=== PATIENT | male | born 1970 | race Caucasian/White ===

== ENCOUNTER 2018-05-15 20:59 | Emergency (ER) | payer OTHER ==
[2018-05-15] MEDS: SOD CHLORIDE 0.9% 1,000 ML IV (21:33)
[2018-05-15] MEDS: ONDANSETRON 4 MG INJ IV (21:33)
[2018-05-15 21:51] LABS: ANION GAP 14 (8-16); BLOOD UREA NITROGEN 9 mg/dl (7-20); CALCIUM 8.5 mg/dl (8.4-10.2); CARBON DIOXIDE 26 mmol/L (21-31); CHLORIDE 92 mmol/L (97-110); CREATININE 0.71 mg/dl (0.61-1.24); GLUCOSE 97 mg/dl (70-220); POTASSIUM 3.1 mmol/L (3.5-5.1); SODIUM 129 mmol/L (135-144)
[2018-05-15] MEDS: POTASSIUM CHLORIDE (SR) 10 MEQ TAB PO (22:49)
== END 2018-05-15 23:20 | disposition home or self-care (01) ==
LOC: E/R 20:59
DX: E86.0 Dehydration (principal); E87.1 Hypo-osmolality and hyponatremia; E87.6 Hypokalemia; I10 Essential (primary) hypertension
CPT/HCPCS: 36415; 80048; 96374; 99284-25

== ENCOUNTER → 2018-05-22 16:49 | Emergency (ER) | payer OTHER ==
[2018-05-22] MEDS: ONDANSETRON (ODT) 4 MG TAB ODT (15:35)
[2018-05-22] MEDS: LORAZEPAM 0.5 MG TAB PO (15:35)
[2018-05-22] MEDS: SOD CHLORIDE 0.9% 1,000 ML IV (15:35)
[2018-05-22] MEDS: LIDOCAINE/MYLANTA 40 ML BTL PO (16:11)
== END | disposition home or self-care (01) ==
DX: R11.2 Nausea with vomiting, unspecified (principal); I10 Essential (primary) hypertension; F17.210 Nicotine dependence, cigarettes, uncomplicated
CPT/HCPCS: 96360; 99284-25

== ENCOUNTER 2018-05-28 18:20 | Emergency (ER) | payer OTHER ==
[2018-05-28] MEDS: PANTOPRAZOLE 40 MG INJ IV (20:43)
[2018-05-28] MEDS: ONDANSETRON 4 MG INJ IV (20:43)
[2018-05-28] MEDS: LORAZEPAM 2 MG INJ IV (20:43)
[2018-05-28] MEDS: SOD CHLORIDE 0.9% 1,000 ML IV (20:45)
[2018-05-28] MEDS: LIDOCAINE/MYLANTA 40 ML BTL PO (20:46)
[2018-05-28 20:48] LABS: ADD MAN DIFF? NO
[2018-05-28 20:55] LABS: URINE BLOOD (Dip) POC Negative (NEGATIVE); URINE GLUCOSE (Dip) POC Negative (NEGATIVE); URINE KETONES (Dip) POC Negative (NEGATIVE); URINE LEUKOCYTE EST (Dip) POC Negative (NEGATIVE); URINE NITRITE (Dip) POC Negative (NEGATIVE); URINE TOTAL PROTEIN POC Negative (NEGATIVE)
[2018-05-28 20:57] LABS: WHITE BLOOD COUNT 9.8 10^3/ul (4.8-10.8)
[2018-05-28 20:57] LABS: BASOPHILS % 0.2 % (0.0-2.0); EOSINOPHILS % 0.4 % (0.0-7.0); HEMATOCRIT 35.5 % (42.0-52.0); HEMOGLOBIN 12.8 g/dl (14.0-18.0); LYMPHOCYTES % 20.3 % (15.0-51.0); MEAN CORPUSCULAR HEMOGLOBIN 30.8 pg (29.0-33.0); MEAN CORPUSCULAR HGB CONC 36.1 g/dl (32.0-37.0); MEAN CORPUSCULAR VOLUME 85.3 fl (82.0-101.0); MEAN PLATELET VOLUME 8.4 fl (7.4-10.4); MONOCYTE # 0.7 10^3/ul (0.3-0.9); MONOCYTES % 7.2 % (0.0-11.0); NEUTROPHILS % 71.6 % (39.0-77.0); PLATELET COUNT 416 10^3/UL (140-415); RED BLOOD COUNT 4.16 10^6/ul (4.70-6.10); RED CELL DISTRIBUTION WIDTH 13.3 % (11.5-14.5)
[2018-05-28 21:21] LABS: ALANINE AMINOTRANSFERASE 26 IU/L (13-69); ALBUMIN 4.3 g/dl (3.3-4.9); ALKALINE PHOSPHATASE 90 IU/L (42-121); ANION GAP 15 (8-16); ASPARTATE AMINO TRANSFERASE 25 IU/L (15-46); BILIRUBIN,INDIRECT 0.4 mg/dl (0-1.1); BILIRUBIN,TOTAL 0.4 mg/dl (0.2-1.3); BLOOD UREA NITROGEN 5 mg/dl (7-20); CARBON DIOXIDE 30 mmol/L (21-31); CHLORIDE 85 mmol/L (97-110); CREATININE 0.63 mg/dl (0.61-1.24); GLUCOSE 97 mg/dl (70-220); LIPASE 14 U/L (23-300); SODIUM 128 mmol/L (135-144); TOTAL PROTEIN 8.2 g/dl (6.1-8.1)
[2018-05-28 21:23] LABS: POTASSIUM 2.2 mmol/L (3.5-5.1)
[2018-05-28] MEDS: RANITIDINE 50 MG in SOD CHLORIDE 0.9% 50 ML IVPB (21:41)
[2018-05-28 21:49] LABS: ADD UMIC NO; UR ASCORBIC ACID NEGATIVE (NEGATIVE); UR BILIRUBIN (Dip) NEGATIVE (NEGATIVE); UR BLOOD (Dip) NEGATIVE (NEGATIVE); UR CLARITY CLEAR (CLEAR); UR COLOR COLORLESS (YELLOW); UR GLUCOSE (Dip) NEGATIVE (NEGATIVE); UR KETONES (Dip) NEGATIVE (NEGATIVE); UR LEUKOCYTE ESTERASE (Dip) NEGATIVE Leu/ul (NEGATIVE); UR NITRITE (Dip) NEGATIVE (NEGATIVE); UR SPECIFIC GRAVITY (Dip) 1.001 (1.003-1.030); UR TOTAL PROTEIN (Dip) NEGATIVE (NEGATIVE); UR UROBILINOGEN (Dip) NEGATIVE (NEGATIVE)
[2018-05-28] MEDS: POTASSIUM CHLORIDE 100 ML IVPB (23:32)
[2018-05-29] MEDS: ONDANSETRON 4 MG INJ IV (03:40)
== END 2018-05-29 03:45 | disposition short-term general hospital (02) ==
LOC: FTE 18:20 → E/R 05-29 03:45
DX: E87.6 Hypokalemia (principal); I10 Essential (primary) hypertension; Z87.891 Personal history of nicotine dependence
CPT/HCPCS: 36415; 70360; 80053; 81003; 83690; 85025; 86850; 86900; 86901; 93005; 96374; 96375; 96376; 99285-25

== ENCOUNTER 2018-06-30 15:47 | Emergency (ER) | payer OTHER ==
[2018-06-30 19:50] LABS: ADD MAN DIFF? NO
[2018-06-30] MEDS: ASPIRIN 325 MG TAB PO (19:53)
[2018-06-30] MEDS: ONDANSETRON 4 MG INJ IV ×2 (19:55→21:16)
[2018-06-30] MEDS: NITROGLYCERIN 2% 1 GM OINT PKT TD (19:55)
[2018-06-30] MEDS: HYDROmorphONE 1 MG/ML SYG IV (19:56)
[2018-06-30 20:07] LABS: BASOPHIL # 0.1 10^3/ul (0.0-0.1); BASOPHILS % 0.5 % (0.0-2.0); EOSINOPHILS # 0.2 10^3/ul (0.0-0.5); EOSINOPHILS % 1.6 % (0.0-7.0); HEMOGLOBIN 12.7 g/dl (14.0-18.0); LYMPHOCYTES # 2.4 10^3/ul (0.8-2.9); LYMPHOCYTES % 23.4 % (15.0-51.0); MEAN CORPUSCULAR HEMOGLOBIN 30.8 pg (29.0-33.0); MEAN CORPUSCULAR HGB CONC 33.4 g/dl (32.0-37.0); MEAN PLATELET VOLUME 8.6 fl (7.4-10.4); MONOCYTE # 0.6 10^3/ul (0.3-0.9); MONOCYTES % 5.7 % (0.0-11.0); NEUTROPHILS % 68.5 % (39.0-77.0); PLATELET COUNT 420 10^3/UL (140-415); RED BLOOD COUNT 4.13 10^6/ul (4.70-6.10); RED CELL DISTRIBUTION WIDTH 14.6 % (11.5-14.5)
[2018-06-30 20:07] LABS: WHITE BLOOD COUNT 10.2 10^3/ul (4.8-10.8)
[2018-06-30 20:24] LABS: ALANINE AMINOTRANSFERASE 22 IU/L (13-69); ALBUMIN 4.1 g/dl (3.3-4.9); ALKALINE PHOSPHATASE 110 IU/L (42-121); ANION GAP 14 (8-16); ASPARTATE AMINO TRANSFERASE 20 IU/L (15-46); BILIRUBIN,INDIRECT 0.3 mg/dl (0-1.1); BILIRUBIN,TOTAL 0.3 mg/dl (0.2-1.3); BLOOD UREA NITROGEN 10 mg/dl (7-20); CALCIUM 9.2 mg/dl (8.4-10.2); CARBON DIOXIDE 27 mmol/L (21-31); CHLORIDE 105 mmol/L (97-110); CREATININE 0.76 mg/dl (0.61-1.24); GLUCOSE 97 mg/dl (70-220); POTASSIUM 3.6 mmol/L (3.5-5.1); SODIUM 142 mmol/L (135-144); TOTAL PROTEIN 7.8 g/dl (6.1-8.1)
[2018-06-30 20:35] LABS: TROPONIN-I < 0.012 ng/ml (0.000-0.120)
[2018-06-30 23:31] LABS: TROPONIN-I < 0.012 ng/ml (0.000-0.120)
== END 2018-06-30 23:40 | disposition home or self-care (01) ==
LOC: E/R 23:40
DX: R07.9 Chest pain, unspecified (principal); I10 Essential (primary) hypertension; Z87.891 Personal history of nicotine dependence
CPT/HCPCS: 36415; 71045; 80053; 84484; 85025; 93005; 96374; 96375; 96376; 99285-25